=== PATIENT | female | born 1950 | race American Indian/Alaskan Native ===

== ENCOUNTER 2017-05-11 05:30 | Inpatient (IN) | payer MEDICARE ==
[2017-05-11 06:34] LABS: Basophils % (Auto) 0.6 % (0.0-1.8); Eosinophils % (Auto) 1.6 % (0.0-4.3); Hematocrit 31.5 % (30.3-42.9); Mean Corpuscular HGB Conc 32 % (30-34); Mean Corpuscular Hemoglobin 27 pg (28-32); Mean Corpuscular Volume 85 fl (79-97); Platelet Count 223 K/mm3 (140-440); Red Blood Count 3.72 M/mm3 (3.65-5.03)
--- NOTE | 2017-05-11 06:39 | Emergency Department Report ---
ED Shortness of Breath HPI - General Chief Complaint: Dyspnea/Respdistress Stated Complaint: KANIKA Time Seen by Provider: 05/11/17 05:58 Source: patient Mode of arrival: Stretcher Limitations: No Limitations - History of Present Illness Initial Comments: Patient is a 67-year-old female history of end-stage renal disease on dialysis Friday here with complaint of shortness of breath and chest tightness. Patient states that last night she began to feel worsening shortness of breath. She has been feeling fatigued all week. She had some tightness in the center of her chest that did not radiate. It was not worse with exertion. She had a cough and felt that she was coughing up some frothy sputum. She does not miss dialysis and had a normal session on Friday. She does not feel volume overloaded. MD Complaint: shortness of breath -: Gradual, week(s) (1) Improves With: oxygen Worsens With: exertion Known History Of: asthma Associated Symptoms: chest pain, cough, sputum production - Related Data Home Medications Medication Instructions Recorded Confirmed Last Taken Albuterol Sulfate [Albuterol 0.63% 0.63 mg IH TID PRN 11/23/14 12/12/15 3 Months Ago NEBS] NIFEdipine XL [Procardia Xl] 60 mg PO DAILY 04/05/15 12/12/15 12/12/15 06:00 Carvedilol [Coreg] 6.25 mg PO DAILY 04/29/15 12/12/15 12/12/15 06:00 Glimepiride [Amaryl] 2 mg PO BID 04/29/15 12/06/15 12/11/15 Warfarin [Coumadin] 2.5 mg PO QDAY 04/29/15 12/06/15 12/07/15 cloNIDine [Catapres] 2 mg PO TID 04/29/15 12/12/15 12/12/15 06:00 hydrALAZINE [Apresoline TAB] 100 mg PO DAILY 04/29/15 12/12/15 12/12/15 06:00 Ferric Citrate (Nf) [Auryxia (Nf)] 210 mg PO TID 12/06/15 12/06/15 12/11/15 Furosemide [Lasix TAB] 40 mg PO QDAY 12/06/15 12/06/15 12/11/15 Simvastatin [Zocor TAB] 10 mg PO QHS 12/06/15 12/06/15 12/11/15 Warfarin [Coumadin] 5 mg PO QDAY 12/06/15 12/06/15 12/07/15 Previous Rx's Medication Instructions Recorded Last Taken Type clonazePAM [KlonoPIN] 0.5 mg PO HS #30 tablet 04/26/15 12/11/15 Rx HYDROcodone/APAP 7.5-325 [Clune 1 each PO Q6HR PRN #60 tablet 12/12/15 Unknown Rx 7.5/325] Allergies Allergy/AdvReac Type Severity Reaction Status Date / Time morphine Allergy Intermediate Itching Verified 04/10/15 08:32 Penicillins AdvReac Intermediate Rash Verified 04/10/15 08:32 ED Review of Systems ROS: Stated complaint: KANIKA Other details as noted in HPI Comment: All other systems reviewed and negative Constitutional: denies: chills, fever Eyes: denies: eye pain, eye discharge, vision change ENT: denies: ear pain, throat pain Respiratory: cough, shortness of breath. denies: wheezing Cardiovascular: chest pain. denies: palpitations Endocrine: no symptoms reported Gastrointestinal: denies: abdominal pain, nausea, diarrhea Genitourinary: denies: urgency, dysuria, discharge Musculoskeletal: denies: back pain, joint swelling, arthralgia Skin: denies: rash, lesions Neurological: denies: headache, weakness, paresthesias Psychiatric: denies: anxiety, depression Hematological/Lymphatic: denies: easy bleeding, easy bruising ED Past Medical Hx - Past Medical History Hx Hypertension: Yes Hx Congestive Heart Failure: Yes Hx Diabetes: Yes (NIDDM 1993) Hx GERD: Yes Hx Renal Disease: Yes (CKD on Dialysis) Hx of Cancer: Yes (RENAL) Hx Sickle Cell Disease: No Hx Arthritis: Yes (KNEES) Hx Seizures: No Hx Asthma: Yes (SEASONAL IN [place] ONLY) Hx COPD: No Hx Tuberculosis: No Hx HIV: No Additional medical history: A fib - Surgical History Hx Pacemaker: No Additional Surgical History: Hysterectomy. Right Nephrectomy - Family History Family history: no significant - Social History Smoking Status: Never Smoker Substance Use Type: None - Medications Home Medications: Home Medications Medication Instructions Recorded Confirmed Last Taken Type Albuterol Sulfate [Albuterol 0.63% 0.63 mg IH TID PRN 11/23/14 12/12/15 3 Months Ago History NEBS] NIFEdipine XL [Procardia Xl] 60 mg PO DAILY 04/05/15 12/12/15 12/12/15 06:00 History clonazePAM [KlonoPIN] 0.5 mg PO HS #30 tablet 04/26/15 12/06/15 12/11/15 Rx Carvedilol [Coreg] 6.25 mg PO DAILY 04/29/15 12/12/15 12/12/15 06:00 History Glimepiride [Amaryl] 2 mg PO BID 04/29/15 12/06/15 12/11/15 History Warfarin [Coumadin] 2.5 mg PO QDAY 04/29/15 12/06/15 12/07/15 History cloNIDine [Catapres] 2 mg PO TID 04/29/15 12/12/15 12/12/15 06:00 History hydrALAZINE [Apresoline TAB] 100 mg PO DAILY 04/29/15 12/12/15 12/12/15 06:00 History Ferric Citrate (Nf) [Auryxia (Nf)] 210 mg PO TID 12/06/15 12/06/15 12/11/15 History Furosemide [Lasix TAB] 40 mg PO QDAY 12/06/15 12/06/15 12/11/15 History Simvastatin [Zocor TAB] 10 mg PO QHS 12/06/15 12/06/15 12/11/15 History Warfarin [Coumadin] 5 mg PO QDAY 12/06/15 12/06/15 12/07/15 History HYDROcodone/APAP 7.5-325 [Clune 1 each PO Q6HR PRN #60 tablet 12/12/15 Unknown Rx 7.5/325] ED Physical Exam - General Limitations: No Limitations General appearance: alert, in no apparent distress - Head Head exam: Present: atraumatic, normocephalic - Eye Eye exam: Present: normal appearance - ENT ENT exam: Present: mucous membranes moist - Neck Neck exam: Present: normal inspection - Respiratory Respiratory exam: Present: normal lung sounds bilaterally. Absent: respiratory distress - Cardiovascular Cardiovascular Exam: Present: regular rate, irregular rhythm. Absent: systolic murmur, diastolic murmur, rubs, gallop - GI/Abdominal GI/Abdominal exam: Present: soft, normal bowel sounds - Extremities Exam Extremities exam: Present: pedal edema. Absent: tenderness - Back Exam Back exam: Present: normal inspection. Absent: full ROM, tenderness - Neurological Exam Neurological exam: Present: alert, oriented X3 - Psychiatric Psychiatric exam: Present: normal affect, normal mood - Skin Skin exam: Present: warm, dry, intact, normal color. Absent: rash ED Course Vital Signs 05/11/17 05/11/17 05/11/17 05:45 06:25 06:39 Temperature 97.6 F Pulse Rate 98 H 90 Respiratory 20 18 18 Rate Blood Pressure 209/89 Blood Pressure 209/89 174/85 [Left] O2 Sat by Pulse 99 100 100 Oximetry ED Medical Decision Making - Lab Data Result diagrams: 05/11/17 06:05 05/11/17 06:05 - EKG Data -: EKG Interpreted by Me - EKG Data 05/11/17 06:38 A flutter rate and [address]-T wave changes - Medical Decision Making Patient is a 67-year-old female here with a history of end-stage renal disease complaints of chest pain and shortness of breath. No coronary artery disease history. No recent stress testing. She has been feeling fatigued and having worsening shortness of breath over the last week. EKG is unchanged from priors. Plan chest x-ray labs and reassessment. Heart score places her at moderate risk. 8:25 AM Discussed case with hospital medicine. Plan to admit to medicine service for dialysis. Will discuss case with paper sheeter. 8:36 AM discussed case with Dr. Dunbar of nephrology. Plan to arrange dialysis. Portions of this chart were dictated with dictation software. There may be dictation errors contained within this note. Critical care attestation.: If time is entered above; I have spent that time in minutes in the direct care of this critically ill patient, excluding procedure time. ED Disposition Clinical Impression: Elevated brain natriuretic peptide (BNP) level, SOB (shortness of breath), CHF (congestive heart failure) Disposition: OP ADMIT IP TO THIS HOSP Is pt being admited?: Yes Condition: Stable Referrals: PRIMARY CARE, [Primary Care Provider] - 3-5 Days
[2017-05-11 06:42] LABS: Red Cell Distribution Width 20.9 % (13.2-15.2)
[2017-05-11 06:50] LABS: BUN/Creatinine Ratio 6.45; Calcium 9.6 mg/dL (8.4-10.2); Chloride 98.6 mmol/L (98-107); Potassium 4.5 mmol/L (3.6-5.0)
[2017-05-11] MEDS ORDERED: NACL 0.9% 100 ML IV PRN (08:41)
[2017-05-11] MEDS ORDERED: NORMODYNE IV ONE (08:58)
[2017-05-11] MEDS ORDERED: APRESOLINE IV ONE (09:02)
[2017-05-11] MEDS ORDERED: APRESOLINE ONE (09:03)
--- NOTE | 2017-05-11 09:16 | XRay Report ---
Single view chest: Compared to . History: Shortness of breath. Findings: Cardiomegaly. Trachea is midline. Pulmonary venous congestion. No consolidation or pleural effusion. Impression: Probable CHF.
--- NOTE | 2017-05-11 09:20 | Consultation ---
History of Present Illness - Reason for Consult Consult date: 05/11/17 end stage renal disease, accelerated hypertension Requesting physician: ROBERT FERREIRA - History of Present Illness This is a 67yo AAF, well known to our group, with h/o hypertension, paroxysmal A -Fib, h/o renal cell CA s/p Rt nephrectomy, ESRD on HD on M/W/F schedule, who presents to [facility] ER on 05/11 with complaints of shortness of breath and chest tightness. Pt had her last routine HD on Fri, when she left close to her EDW, however her SBP was elevated around 190-200s. recently BP meds were adjusted by her [employer]er [employer], however pt admits that she missed several doses since she is in the process of moving. SOB started last night with SMITH, although she fell weak the whole last week. pt also reports chest tightness in the center of her chest that did not radiate, not worse with exertion. In ER patient was found to have accelerated hypertension with BP as high as 200/80s, treated with IV hydralazine/IV labetalol. CXR showed evidence of pulmonary edema and proBNP was elevated > 29422. Renal consult requested for management of ESRD/volume and BP control. Past History Past Medical History: atrial fib, anemia, hypertension, renal failure Past Surgical History: Other (h/o nephrectomy ) Social history: full code. denies: smoking, alcohol abuse, prescription drug abuse, IV drug use Family history: hypertension Medications and Allergies Allergies Allergy/AdvReac Type Severity Reaction Status Date / Time morphine Allergy Intermediate Itching Verified 04/10/15 08:32 Penicillins AdvReac Intermediate Rash Verified 04/10/15 08:32 Home Medications Medication Instructions Recorded Confirmed Last Taken Type Albuterol Sulfate [Albuterol 0.63% 0.63 mg IH TID PRN 11/23/14 05/11/17 3 Months Ago History NEBS] NIFEdipine XL [Procardia Xl] 60 mg PO BID 04/05/15 05/11/17 12/12/15 06:00 History clonazePAM [KlonoPIN] 0.5 mg PO HS #30 tablet 04/26/15 05/11/17 12/11/15 Rx Carvedilol [Coreg] 3.125 mg PO BID 04/29/15 05/11/17 12/12/15 06:00 History Glimepiride [Amaryl] 2 mg PO BID 04/29/15 05/11/17 12/11/15 History Warfarin [Coumadin] 2.5 mg PO QDAY 04/29/15 05/11/17 12/07/15 History cloNIDine [Catapres] 0.2 mg PO TID 04/29/15 05/11/17 12/12/15 06:00 History Ferric Citrate (Nf) [Auryxia (Nf)] 210 mg PO TID 12/06/15 05/11/17 12/11/15 History Furosemide [Lasix TAB] 40 mg PO QDAY 12/06/15 05/11/17 12/11/15 History Simvastatin [Zocor TAB] 10 mg PO QHS 12/06/15 05/11/17 12/11/15 History Warfarin [Coumadin] 5 mg PO QDAY 12/06/15 05/11/17 12/07/15 History Gabapentin [Neurontin] 100 mg PO Q8HR PRN 05/11/17 05/11/17 Unknown History Valsartan/Hydrochlorothiazide 1 each PO BID 05/11/17 05/11/17 Unknown History [Valsartan-Hctz 160-12.5 mg Tab] Active Meds: Active Medications Sodium Chloride (Nacl 0.9%) 100 mls @ 999 mls/hr IV CLEOPATRA PRN PRN Reason: Hypotension Review of Systems All systems: negative Constitutional: weakness Cardiovascular: chest pain, shortness of breath, dyspnea on exertion Respiratory: cough with sputum, shortness of breath, dyspnea on exertion, congestion Exam - Vital Signs Vital signs: Vital Signs Temp Pulse Resp BP Pulse Ox 97.6 F 98 H 20 209/89 99 05/11/17 05:45 05/11/17 05:45 05/11/17 05:45 05/11/17 05:45 05/11/17 05:45 - General Appearance General appearance: well-developed, well-nourished, appears stated age EENT: ATNC, PERRL, mucous membranes moist Neck: Present: neck supple Respiratory: Rales Heart: regular, S1S2 Gastrointestinal: Present: normoactive bowel sounds Integumentary: no rash, other (no edema ) Neurologic: no focal deficit, alert and oriented x3, strength 5/5, CN 3-12 intact Psychiatric: mood/affect appropriate, cooperative Results - Lab Results 05/11/17 06:05 05/11/17 06:05 Most recent lab results Calcium 9.6 mg/dL (8.4-10.2) 05/11/17 06:05 Laboratory Tests 05/11/17 05/11/17 06:05 06:05 Calcium 9.6 Troponin T 0.023 NT-Pro-B Natriuret Pep 99347 H Assessment and Plan - Patient Problems (1) Hypertensive emergency Current Visit: Yes Status: Acute Plan to address problem: Will arrange HD today with target UF of 3 kg as tolerated. cont IV hydralazine/ IV labetalol to target SBP 160mmHg. Resume home BP meds, will adjust meds if BP does not improve with HD/UF today (2) Pulmonary edema Current Visit: Yes Status: Acute Qualifiers: Chronicity: C Plan to address problem: HD today with target UF of 3kg (3) Anemia in chronic illness Current Visit: Yes Status: Acute Plan to address problem: Hb at target, will start EPO if hb < 10 (4) Atrial fibrillation Current Visit: No Status: Chronic Qualifiers: Atrial fibrillation type: unspecified Qualified Code(s): I48.91 - Unspecified atrial fibrillation Plan to address problem: currently well rate controlled. cont A/C with warfarin (5) End stage renal disease on dialysis Current Visit: No Status: Chronic Plan to address problem: HD today, then resume HD on MWF schedule
[2017-05-11] MEDS ORDERED: NACL 0.9 (PRIMING MACHINE ONLY DIALYSIS) MC ONE (10:55)
[2017-05-11] MEDS ORDERED: NEURONTIN PO PRN (11:34)
[2017-05-11] MEDS: PROVENTIL IH SCH ×3 (12:12→20:39)
[2017-05-11] MEDS: CATAPRES PO SCH ×2 (13:43→19:55)
[2017-05-11] MEDS: COREG PO SCH ×2 (13:46→22:07)
[2017-05-11] MEDS ORDERED: NON-FORMULARY (Ferric Citrate 210 MG) PO SCH (14:00)
[2017-05-11 14:40] LABS: INR 2.84 (0.87-1.13)
--- NOTE | 2017-05-11 15:16 | History and Physical Report ---
History of Present Illness Date of admission: 05/11/17 08:26 Chief complaint: Shortness of breath and lower extremity swelling History of present illness: Kristin is a 67-year-old woman with a past medical history of end-stage renal disease, atrial fibrillation, diabetes, uncontrolled hypertension, asthma. She states that she is in the process of moving to [facility], she has been very busy, she could not find her medications because she doesn't know where they fell when she was packing. Therefore she has not been taking any of her medications for blood pressure or her diuretics. She states that she never missed any episodes of hemodialysis. She had a yard sale and she was outside for many hours in the hot sun, she checked her glucose as she was hypoglycemic to 48. After which she chose to go and eat, however she admits that she was not adherent to her low sodium diet, she went out and ate very salty [place] food. Shortly after vascular getting very short of breath, complaining of SMITH, orthopnea, pedal edema. And chest tightness. She states that she had some wheezing in the ER, but wheezing has now resolved. Since getting dialysis she feels much better. Past History Past Medical History: atrial fib, anemia, diabetes (diet and lifestyle controlled), hypertension, renal failure, other (hx or RCC, sp nephrectomy, asthma) Past Surgical History: Other (h/o nephrectomy ) Social history: full code. denies: smoking, alcohol abuse, prescription drug abuse, IV drug use Family history: hypertension Medications and Allergies Allergies Allergy/AdvReac Type Severity Reaction Status Date / Time morphine Allergy Intermediate Itching Verified 04/10/15 08:32 Penicillins AdvReac Intermediate Rash Verified 04/10/15 08:32 Home Medications Medication Instructions Recorded Confirmed Last Taken Type Albuterol Sulfate [Albuterol 0.63% 0.63 mg IH TID PRN 11/23/14 05/11/17 3 Months Ago History NEBS] NIFEdipine XL [Procardia Xl] 60 mg PO BID 04/05/15 05/11/17 12/12/15 06:00 History clonazePAM [KlonoPIN] 0.5 mg PO HS #30 tablet 04/26/15 05/11/17 12/11/15 Rx Carvedilol [Coreg] 3.125 mg PO BID 04/29/15 05/11/17 12/12/15 06:00 History Glimepiride [Amaryl] 2 mg PO BID 04/29/15 05/11/17 12/11/15 History Warfarin [Coumadin] 2.5 mg PO QDAY 04/29/15 05/11/17 12/07/15 History cloNIDine [Catapres] 0.2 mg PO TID 04/29/15 05/11/17 12/12/15 06:00 History Ferric Citrate (Nf) [Auryxia (Nf)] 210 mg PO TID 12/06/15 05/11/17 12/11/15 History Furosemide [Lasix TAB] 40 mg PO QDAY 12/06/15 05/11/17 12/11/15 History Simvastatin [Zocor TAB] 10 mg PO QHS 12/06/15 05/11/17 12/11/15 History Warfarin [Coumadin] 5 mg PO QDAY 12/06/15 05/11/17 12/07/15 History Gabapentin [Neurontin] 100 mg PO Q8HR PRN 05/11/17 05/11/17 Unknown History Valsartan/Hydrochlorothiazide 1 each PO BID 05/11/17 05/11/17 Unknown History [Valsartan-Hctz 160-12.5 mg Tab] Active Meds: Active Medications Albuterol (Proventil) 2.5 mg IH QIDRT [facility] Last Admin: 05/11/17 12:12 Dose: Not Given Carvedilol (Coreg) 3.125 mg PO BID [facility] Last Admin: 05/11/17 13:46 Dose: 3.125 mg Clonazepam (Klonopin) 0.5 mg PO HS [facility] Clonidine HCl (Catapres) 0.2 mg PO TID [facility] Last Admin: 05/11/17 13:43 Dose: 0.2 mg Furosemide (Lasix) 40 mg PO QDAY [facility] Gabapentin (Neurontin) 100 mg PO Q8H PRN PRN Reason: Pain Hydralazine HCl (Apresoline) 10 mg IV Q4H PRN PRN Reason: BP >160/100 Sodium Chloride (Nacl 0.9%) 100 mls @ 999 mls/hr IV CLEOPATRA PRN PRN Reason: Hypotension Miscellaneous Medication (Ferric Citrate) 210 mg PO TID [facility] Nifedipine (Procardia Xl) 60 mg PO BID [facility] Simvastatin (Zocor) 10 mg PO QHS S[facility] Warfarin Sodium (Coumadin) 5 mg PO QDAY SUSY PRN Reason: Protocol Warfarin Sodium (Coumadin Pharmacy To Dose) 1 each PO PKCONSULT SUSY PRN Reason: Protocol Review of Systems All systems: negative (14 point review of systems is otherwise negative except as stated in HPI) Constitutional: fatigue, weakness Cardiovascular: chest pain, orthopnea, edema, shortness of breath, dyspnea on exertion, paroxysmal nocturnal dyspnea Respiratory: wheezing Exam - Constitutional Vitals: Temp Pulse Resp BP Pulse Ox 97.9 F 78 20 201/93 98 05/11/17 12:00 05/11/17 14:45 05/11/17 12:00 05/11/17 14:45 05/11/17 10:03 General appearance: Present: no acute distress, well-nourished - EENT Eyes: Present: PERRL ENT: hearing intact, clear oral mucosa - Neck Neck: Present: supple, normal ROM - Respiratory Respiratory effort: normal Respiratory: bilateral: rales (bases) - Cardiovascular Heart Sounds: Present: S1 & S2. Absent: rub, click - Extremities Extremities: pulses symmetrical, No edema Peripheral Pulses: within normal limits - Abdominal General gastrointestinal: Present: soft, non-tender, non-distended, normal bowel sounds Female genitourinary: Present: normal - Integumentary Integumentary: Present: clear, warm, dry - Musculoskeletal Musculoskeletal: gait normal, strength equal bilaterally - Psychiatric Psychiatric: appropriate mood/affect, intact judgment & insight - Neurologic Neurologic: CNII-XII intact, moves all extremities Results - Labs CBC & Chem 7: 05/11/17 06:05 05/11/17 06:05 Labs: Laboratory Last Values WBC 12.0 K/mm3 (4.5-11.0) H 05/11/17 06:05 RBC 3.72 M/mm3 (3.65-5.03) 05/11/17 06:05 Hgb 10.0 gm/dl (10.1-14.3) L 05/11/17 06:05 Hct 31.5 % (30.3-42.9) 05/11/17 06:05 MCV 85 fl (79-97) 05/11/17 06:05 MCH 27 pg (28-32) L 05/11/17 06:05 MCHC 32 % (30-34) 05/11/17 06:05 RDW 20.9 % (13.2-15.2) H 05/11/17 06:05 Plt Count 223 K/mm3 (140-440) 05/11/17 06:05 Lymph % (Auto) 8.3 % (13.4-35.0) L 05/11/17 06:05 [place] % (Auto) 6.2 % (0.0-7.3) 05/11/17 06:05 Eos % (Auto) 1.6 % (0.0-4.3) 05/11/17 06:05 Baso % (Auto) 0.6 % (0.0-1.8) 05/11/17 06:05 Lymph # 1.0 K/mm3 (1.2-5.4) L 05/11/17 06:05 [place] # 0.7 K/mm3 (0.0-0.8) 05/11/17 06:05 Eos # 0.2 K/mm3 (0.0-0.4) 05/11/17 06:05 Baso # 0.1 K/mm3 (0.0-0.1) 05/11/17 06:05 Seg Neutrophils % 83.3 % (40.0-70.0) H 05/11/17 06:05 Seg Neutrophils # 10.0 K/mm3 (1.8-7.7) H 05/11/17 06:05 PT 31.4 Sec. (12.2-14.9) H 05/11/17 12:42 INR 2.84 (0.87-1.13) H 05/11/17 12:42 Sodium 143 mmol/L (137-145) 05/11/17 06:05 Potassium 4.5 mmol/L (3.6-5.0) 05/11/17 06:05 Chloride 98.6 mmol/L (98-107) 05/11/17 06:05 Carbon Dioxide 25 mmol/L (22-30) 05/11/17 06:05 Anion Gap 24 mmol/L 05/11/17 06:05 BUN 51 mg/dL (7-17) H 05/11/17 06:05 Creatinine 7.9 mg/dL (0.7-1.2) H 05/11/17 06:05 Estimated GFR 6 ml/min 05/11/17 06:05 BUN/Creatinine Ratio 6.45 % 05/11/17 06:05 Glucose 131 mg/dL (65-100) H 05/11/17 06:05 POC Glucose 158 (70-105) H 05/11/17 11:59 Calcium 9.6 mg/dL (8.4-10.2) 05/11/17 06:05 Troponin T 0.023 ng/mL (0.00-0.029) 05/11/17 06:05 NT-Pro-B Natriuret Pep 80617 pg/mL (0-900) H 05/11/17 06:05 - Imaging and Cardiology Chest x-ray: image reviewed (pulmonary vascular congestion) Assessment and Plan Assessment and plan: Kristin is a 67-year-old woman with a past medical history of end-stage renal disease, atrial fibrillation, diabetes, uncontrolled hypertension, asthma, she presented with noncompliance with low sodium diet, and having lost her medications and not taking any of her blood pressure medications and diuretics for a few days. She presented with fluid overload and was admitted to have urgent dialysis. Chest pain Also likely due to CHF exacerbation and hypertensive urgency Serial troponins are negative, will obtain cardiology consult as this is likely that she has had cardiac risk stratification by them now patient already therefore will not order it. Acute exacerbation of CHF Cardiology consult said, fluid to be removed by hemodialysis Optimize cardiac medications, obtain echocardiogram Atrial fibrillation/chronic Continue heart rate control medications, continue warfarin, pharmacy to dose Hypertensive urgency She received IV hydralazine in the ER, blood pressures are improved, we'll restart her home medications Diabetes type 2, not insulin-dependent With antihyperglycemic prior to arrival, Lifestyle controlled We'll put on sliding scale insulin Asthma Does not appear to be an exacerbation Wheezing that was heard in the ER was most likely due to pulmonary vascular congestion, have now resolved DVT prophylaxis Fully anticoagulated VTE prophylaxis?: Chemical Plan of care discussed with patient/family: Yes
[2017-05-11] MEDS ORDERED: D50W (25GM) IV PRN (15:23)
[2017-05-11] MEDS: COUMADIN PO SCH (17:12)
[2017-05-11] MEDS: NOVOLOG SUB-Q SCH ×2 (17:15→21:57)
[2017-05-11] MEDS ORDERED: PROVENTIL IH PRN (17:24)
[2017-05-11] MEDS: APRESOLINE IV PRN (19:55)
[2017-05-11] MEDS: PROCARDIA XL PO SCH (22:08)
[2017-05-11] MEDS: ZOCOR PO SCH (22:08)
[2017-05-12] MEDS: APRESOLINE IV PRN ×3 (00:16→18:42)
[2017-05-12 05:08] LABS: INR 2.9 (0.87-1.13)
[2017-05-12] MEDS: TYLENOL PO PRN ×2 (05:55→20:08)
--- NOTE | 2017-05-12 07:50 | Admit Criteria Form ---
Admission Criteria Documentation: HEART FAILURE: COMMON COMPLICATIONS Clinical Indications for Inpatient Care (lovelock/check or initial the applicable condition/criteria): Ongoing inpatient care may be indicated for heart failure with 1 or more of the following (1)(2)(3)(4)(5)(6)(7)(8): [ ]I. New-onset heart failure [ ]II. Acute cardiac ischemia causing or associated with failure [ ]III. Ongoing need for care for primary condition requiring frequent therapy adjustments because of changes in cardiac function (eg, drug dosage changes for drugs that are renally metabolized) [X]IV. Complications of heart failure, including 1 or more of the following: [ ]a) Hemodynamic instability [ ]b) Pericardial effusion [ ]c) Symptomatic pleural effusion(16) [ ]d) Hypoxemia [ ]e) Tachypnea [X]f) Dyspnea [ ]g) Syncope [ ]h) Altered mental status [ ]i) Acute renal insufficiency that is severe (reduction of more than 50% in estimated glomerular filtration rate from baseline) or progressive (reduction of more than 25% in estimated glomerular filtration rate from baseline, with creatinine continuing to rise) [ ]j) Debilitating anasarca (eg tissue breakdown with infection, inability to void due to edema)(E) (17) [ ]k) Clinically significant metabolic abnormalities due to heart failure (e.g., new-onset metabolic acidosis) Extended stay may be needed until ALL of the following are present(1)(3)(18)(41) (55): [ ]a) Hemodynamic stability [ ]b) Stable and effective diuretic regimen established (or patient on stable dialysis regimen if in chronic renal failure) [ ]c) Volume status acceptable on oral medication [ ]d) Breathing comfortably at rest [ ]e) Saturation of arterial oxygen greater than 90% or at acceptable baseline [ ]f) Pulmonary edema absent or improved [ ]g) Peripheral or sacral edema absent or improved [ ]h) Renal function stable and manageable at a lower level of care [ ]i) Complications (e.g., pleural effusion) resolved or manageable at a lower level of care [ ]j) Patient or caregiver has received written discharge instructions or educational material addressing activity level, diet, discharge medications, follow-up appointment, weight monitoring, and what to do if symptoms worsen. (56)(57)(58) The original [facility] [employer] content created by Kris Helm has been revised. The portions of the content which have been revised are identified through the use of italic text or in bold, and Kris Helm has neither reviewed nor approved the modified material.All other unmodified content is copyright [employer]. Please see references footnoted in the original [employer] [facility] edition 2017 Admission Criteria Met: Yes
[2017-05-12] MEDS: NOVOLOG SUB-Q SCH ×4 (08:14→22:54)
[2017-05-12] MEDS: PROVENTIL IH SCH ×3 (08:38→19:45)
[2017-05-12] MEDS: CATAPRES PO SCH ×3 (08:43→21:19)
[2017-05-12] MEDS ORDERED: DIOVAN PO ONE (09:00)
--- NOTE | 2017-05-12 09:26 | Progress Note ---
Assessment and Plan (1) Hypertensive emergency Current Visit: Yes Status: Acute Plan to address problem: Remains poorly controlled. HD again today. Will challenge for 2-3 L UF as tolerated. Added Diovan for better BP control. (2) Pulmonary edema Current Visit: Yes Status: Acute Qualifiers: Chronicity: C Plan to address problem: HD again today with target UF of 2-3kg (3) Anemia in chronic illness Current Visit: Yes Status: Acute Plan to address problem: Hb at target, will start EPO if hb < 10 (4) Atrial fibrillation Current Visit: No Status: Chronic Qualifiers: Atrial fibrillation type: unspecified Qualified Code(s): I48.91 - Unspecified atrial fibrillation Plan to address problem: currently well rate controlled. cont A/C with warfarin (5) End stage renal disease on dialysis Current Visit: No Status: Chronic Plan to address problem: HD today, then resume HD on MWF schedule Subjective Date of service: 05/12/17 Interval history: SOB improved. S/p emergency HD on Friday Objective - Exam Narrative Exam: General appearance: well-developed, well-nourished, appears stated age EENT: ATNC, PERRL, mucous membranes moist Neck: Present: neck supple, No JVD, trachea midline, no lmphadenopathy Respiratory: Rales b/L, no wheezing Heart: irregular irregular, No m/r/g Gastrointestinal: Present: normoactive bowel sounds, Non tender Integumentary: no rash, other (no edema ), Neurologic: no focal deficit, alert and oriented x3, strength 5/5, CN 3-12 intact Psychiatric: mood/affect appropriate, cooperative - Vital Signs Vital signs: Vital Signs - 12hr 05/11/17 05/11/17 05/12/17 22:00 22:07 00:16 Pulse Rate 60 100 H 61 Pulse Rate [ Posterior Bases ] Respiratory Rate [Posterior Bases] Blood Pressure 185/96 194/73 O2 Sat by Pulse Oximetry 05/12/17 05/12/17 05/12/17 05:08 08:38 08:43 Pulse Rate 66 66 Pulse Rate [ 87 Posterior Bases ] Respiratory 16 Rate [Posterior Bases] Blood Pressure 183/68 190/123 O2 Sat by Pulse 98 Oximetry 05/12/17 05/12/17 08:44 08:49 Pulse Rate 66 Pulse Rate [ 92 H Posterior Bases ] Respiratory 16 Rate [Posterior Bases] Blood Pressure 190/123 O2 Sat by Pulse Oximetry - Lab 05/11/17 06:05 05/11/17 06:05 Most recent lab results Calcium 9.6 mg/dL (8.4-10.2) 05/11/17 06:05
[2017-05-12] MEDS: COREG PO SCH (09:59)
[2017-05-12] MEDS: LASIX PO SCH (09:59)
[2017-05-12] MEDS: PROCARDIA XL PO SCH ×2 (10:00→21:19)
[2017-05-12] MEDS ORDERED: COUMADIN PO SCH (10:00)
--- NOTE | 2017-05-12 11:16 | Progress Note ---
Assessment and Plan Assessment and plan: Kristin is a 67-year-old woman with a past medical history of end-stage renal disease, atrial fibrillation, diabetes, uncontrolled hypertension, asthma, she presented with noncompliance with low sodium diet, and having lost her medications and not taking any of her blood pressure medications and diuretics for a few days. She presented with fluid overload and was admitted to have urgent dialysis. Chest pain likely costochondritis Also likely due to CHF exacerbation and hypertensive urgency Serial troponins are negative, cardiology consult pending Acute exacerbation of CHF likely diastolic due to uncontrolled hypertension Cardiology consult said, fluid to be removed by hemodialysis Optimize cardiac medications, obtain echocardiogram Per Cardiology patient has had optimize the workup that was negative including cardiac catheterization about 2 years ago. Atrial fibrillation/chronic Continue heart rate control medications, continue warfarin, pharmacy to dose Coagulopathy Secondary to warfarin. Pharmacy managing. Hypertensive urgency Still uncontrolled. She received IV hydralazine in the ER, blood pressures are improved, Diovan added, will increase coreg to 6.25 BID Diabetes type 2, not insulin-dependent With antihyperglycemic prior to arrival, Lifestyle controlled We'll put on sliding scale insulin Asthma Does not appear to be an exacerbation PRN nebs DVT prophylaxis Fully anticoagulated History Interval history: Patient seen and examined in no acute distress sitting up at the edge of the bed Hospitalist Physical - Physical exam Narrative exam: VITAL SIGNS: Reviewed. GENERAL: The patient appeared well nourished and normally developed. Vital signs as documented. HEAD: No signs of head trauma. EYES: Pupils are equal. Extraocular motions intact. EARS: Hearing grossly intact. MOUTH: Oropharynx is normal. NECK: No adenopathy, no JVD. CHEST: Chest with clear breath sounds bilaterally. No wheezes, rales, or rhonchi. CARDIAC: Irregularly irregular rate and rhythm. S1 and S2, without murmurs, gallops, or rubs. VASCULAR: No Edema. Peripheral pulses normal and equal in all extremities. ABDOMEN: Soft, without detectable tenderness. No sign of distention. No rebound or guarding, and no masses palpated. Bowel Sounds normal. MUSCULOSKELETAL: Good range of motion of all major joints. Extremities without clubbing, cyanosis or edema. NEUROLOGIC EXAM: Alert and oriented x 3. No focal sensory or strength deficits. Speech normal. Follows commands. PSYCHIATRIC: Mood normal. SKIN: No rash or lesions. - Constitutional Vitals: Temp Pulse Resp BP Pulse Ox 98.6 F 72 18 188/66 100 05/12/17 10:00 05/12/17 10:00 05/12/17 10:00 05/12/17 10:00 05/12/17 09:10 General appearance: Present: no acute distress, well-nourished Results - Labs CBC & Chem 7: 05/11/17 06:05 05/11/17 06:05 Labs: Laboratory Last Values WBC 12.0 K/mm3 (4.5-11.0) H 05/11/17 06:05 RBC 3.72 M/mm3 (3.65-5.03) 05/11/17 06:05 Hgb 10.0 gm/dl (10.1-14.3) L 05/11/17 06:05 Hct 31.5 % (30.3-42.9) 05/11/17 06:05 MCV 85 fl (79-97) 05/11/17 06:05 MCH 27 pg (28-32) L 05/11/17 06:05 MCHC 32 % (30-34) 05/11/17 06:05 RDW 20.9 % (13.2-15.2) H 05/11/17 06:05 Plt Count 223 K/mm3 (140-440) 05/11/17 06:05 Lymph % (Auto) 8.3 % (13.4-35.0) L 05/11/17 06:05 [place] % (Auto) 6.2 % (0.0-7.3) 05/11/17 06:05 Eos % (Auto) 1.6 % (0.0-4.3) 05/11/17 06:05 Baso % (Auto) 0.6 % (0.0-1.8) 05/11/17 06:05 Lymph # 1.0 K/mm3 (1.2-5.4) L 05/11/17 06:05 [place] # 0.7 K/mm3 (0.0-0.8) 05/11/17 06:05 Eos # 0.2 K/mm3 (0.0-0.4) 05/11/17 06:05 Baso # 0.1 K/mm3 (0.0-0.1) 05/11/17 06:05 Seg Neutrophils % 83.3 % (40.0-70.0) H 05/11/17 06:05 Seg Neutrophils # 10.0 K/mm3 (1.8-7.7) H 05/11/17 06:05 PT 31.9 Sec. (12.2-14.9) H 05/12/17 04:28 INR 2.90 (0.87-1.13) H 05/12/17 04:28 Sodium 143 mmol/L (137-145) 05/11/17 06:05 Potassium 4.5 mmol/L (3.6-5.0) 05/11/17 06:05 Chloride 98.6 mmol/L (98-107) 05/11/17 06:05 Carbon Dioxide 25 mmol/L (22-30) 05/11/17 06:05 Anion Gap 24 mmol/L 05/11/17 06:05 BUN 51 mg/dL (7-17) H 05/11/17 06:05 Creatinine 7.9 mg/dL (0.7-1.2) H 05/11/17 06:05 Estimated GFR 6 ml/min 05/11/17 06:05 BUN/Creatinine Ratio 6.45 % 05/11/17 06:05 Glucose 131 mg/dL (65-100) H 05/11/17 06:05 POC Glucose 136 (70-105) H 05/12/17 07:25 Calcium 9.6 mg/dL (8.4-10.2) 05/11/17 06:05 Troponin T 0.023 ng/mL (0.00-0.029) 05/11/17 06:05 NT-Pro-B Natriuret Pep 93791 pg/mL (0-900) H 05/11/17 06:05
[2017-05-12] MEDS ORDERED: NACL 0.9% 100 ML IV PRN (13:00)
--- NOTE | 2017-05-12 13:34 | Consultation ---
History of Present Illness Consult date: 05/12/17 Consult reason: atrial fibrillation, chest pain History of present illness: This is a 67yr old woman with end stage renal disease and is on dialysis. She has Hypertension and chronic atrial fibrillation and is on warfarin for anticoagulation. 2 years ago she had a cardiac cath that demonstrates no significant coronary disease. At that time, an echocardiogram showed a normal systolic function, EF 60%. Patient was brought to this hospital with shortness of breath admitted with hypertensive urgency and acute hypoxic respiratory failure. Her initial BP was 209/89 on presentation. She denies chest pain. Her ECG shows atrial fibrillation with a well controlled ventricular rate. Laboratory studies shows a therapuetic INR of 2.8 on presentation. Past History Past Medical History: atrial fib, anemia, diabetes (diet and lifestyle controlled), hypertension, renal failure, other (hx or RCC, sp nephrectomy, asthma) Past Surgical History: Other (h/o nephrectomy ) Social history: full code. denies: smoking, alcohol abuse, prescription drug abuse, IV drug use Family history: hypertension Medications and Allergies Allergies Allergy/AdvReac Type Severity Reaction Status Date / Time morphine Allergy Intermediate Itching Verified 04/10/15 08:32 Penicillins AdvReac Intermediate Rash Verified 04/10/15 08:32 Home Medications Medication Instructions Recorded Confirmed Last Taken Type Albuterol Sulfate [Albuterol 0.63% 0.63 mg IH TID PRN 11/23/14 05/11/17 3 Months Ago History NEBS] NIFEdipine XL [Procardia Xl] 60 mg PO BID 04/05/15 05/11/17 12/12/15 06:00 History clonazePAM [KlonoPIN] 0.5 mg PO HS #30 tablet 04/26/15 05/11/17 12/11/15 Rx Carvedilol [Coreg] 3.125 mg PO BID 04/29/15 05/11/17 12/12/15 06:00 History Glimepiride [Amaryl] 2 mg PO BID 04/29/15 05/11/17 12/11/15 History Warfarin [Coumadin] 2.5 mg PO QDAY 04/29/15 05/11/17 12/07/15 History cloNIDine [Catapres] 0.2 mg PO TID 04/29/15 05/11/17 12/12/15 06:00 History Ferric Citrate (Nf) [Auryxia (Nf)] 210 mg PO TID 12/06/15 05/11/17 12/11/15 History Furosemide [Lasix TAB] 40 mg PO QDAY 12/06/15 05/11/17 12/11/15 History Simvastatin [Zocor TAB] 10 mg PO QHS 12/06/15 05/11/17 12/11/15 History Warfarin [Coumadin] 5 mg PO QDAY 12/06/15 05/11/17 12/07/15 History Gabapentin [Neurontin] 100 mg PO Q8HR PRN 05/11/17 05/11/17 Unknown History Valsartan/Hydrochlorothiazide 1 each PO BID 05/11/17 05/11/17 Unknown History [Valsartan-Hctz 160-12.5 mg Tab] Active Meds: Active Medications Acetaminophen (Tylenol) 650 mg PO Q6H PRN PRN Reason: Pain, Mild (1-3) Last Admin: 05/12/17 05:55 Dose: 650 mg Albuterol (Proventil) 2.5 mg IH Q4HRT PRN PRN Reason: Shortness Of Breath Albuterol (Proventil) 2.5 mg IH TIDRT [facility] Last Admin: 05/12/17 08:38 Dose: 2.5 mg Carvedilol (Coreg) 6.25 mg PO BID [facility] Clonazepam (Klonopin) 0.5 mg PO HS [facility] Last Admin: 05/11/17 22:07 Dose: 0.5 mg Clonidine HCl (Catapres) 0.2 mg PO TID [facility] Last Admin: 05/12/17 08:43 Dose: 0.2 mg Dextrose (D50w (25gm)) 50 ml IV PRN PRN PRN Reason: Hypoglycemia Furosemide (Lasix) 40 mg PO QDAY [facility] Last Admin: 05/12/17 09:59 Dose: 40 mg Gabapentin (Neurontin) 100 mg PO Q8H PRN PRN Reason: Pain Hydralazine HCl (Apresoline) 10 mg IV Q4H PRN PRN Reason: BP >160/100 Last Admin: 05/12/17 05:08 Dose: 10 mg Sodium Chloride (Nacl 0.9%) 100 mls @ 999 mls/hr IV CLEOPATRA PRN PRN Reason: Hypotension Sodium Chloride (Nacl 0.9%) 100 mls @ 999 mls/hr IV CLEOPATRA PRN PRN Reason: Hypotension Insulin Aspart (Novolog) 0 units SUB-Q ACHS [facility] PRN Reason: Protocol Last Admin: 05/12/17 08:14 Dose: Not Given Miscellaneous Medication (Ferric Citrate) 210 mg PO TID [facility] Nifedipine (Procardia Xl) 60 mg PO BID [facility] Last Admin: 05/12/17 10:00 Dose: 60 mg Simvastatin (Zocor) 10 mg PO QHS [facility] Last Admin: 05/11/17 22:08 Dose: 10 mg Warfarin Sodium (Coumadin Pharmacy To Dose) 1 each PO PKCONSULT [facility] PRN Reason: Protocol Warfarin Sodium (Coumadin) 2.5 mg PO DAILY@1700 [facility] Last Admin: 05/11/17 17:12 Dose: 2.5 mg Physical Examination Vital Signs Temp Pulse Resp BP Pulse Ox 97.6 F 98 H 20 209/89 99 05/11/17 05:45 05/11/17 05:45 05/11/17 05:45 05/11/17 05:45 05/11/17 05:45 General appearance: no acute distress HEENT: Positive: PERRL Neck: Positive: trachea midline Cardiac: Positive: irregularly irregular Neuro: Positive: Grossly Intact Results 05/11/17 06:05 05/11/17 06:05 Coagulation 05/11/17 05/12/17 Range/Units 12:42 04:28 PT 31.4 H 31.9 H (12.2-14.9) Sec. INR 2.84 H 2.90 H (0.87-1.13) Assessment and Plan Acute hypoxic respiratory failure Hypertensive urgency ESRD on HD Atrial fibrillation, chronic rate controlled on warfarin as an outpatient. INR 2.8 on presentation Diabetes mellitus
[2017-05-12] MEDS: COUMADIN PO SCH (18:41)
[2017-05-12] MEDS: ZOCOR PO SCH (21:19)
[2017-05-12] MEDS ORDERED: COREG PO SCH (22:00)
[2017-05-13] MEDS: APRESOLINE IV PRN (03:37)
[2017-05-13 04:30] LABS: INR 2.58 (0.87-1.13)
[2017-05-13] MEDS: NOVOLOG SUB-Q SCH ×2 (08:00→12:00)
[2017-05-13] MEDS: CATAPRES PO SCH ×2 (08:11→13:39)
[2017-05-13] MEDS: PROVENTIL IH SCH ×2 (08:31→13:12)
[2017-05-13] MEDS ORDERED: COREG PO SCH (08:56)
--- NOTE | 2017-05-13 09:10 | Progress Note ---
Assessment and Plan Volume overload Hypertensive urgency ESRD on HD Atrial fibrillation, chronic rate controlled on warfarin as an outpatient. INR 2.8 on presentation Diabetes mellitus Subjective Date of service: 05/13/17 Interval history: Patient has no complaints. Wants to go home. BP still not optimal. Objective Vital Signs Temp Pulse Pulse Pulse Resp Resp BP 05/13/17 08:41 73 16 05/13/17 08:31 76 16 05/13/17 08:30 05/13/17 08:11 73 182/64 05/13/17 03:37 65 181/73 05/12/17 22:00 99.1 F 112 H 76 18 05/12/17 21:19 112 H 193/90 05/12/17 21:18 112 H 193/90 05/12/17 20:14 05/12/17 19:57 99 H 16 05/12/17 19:45 94 H 16 05/12/17 18:42 76 188/68 05/12/17 18:05 98.7 F 90 18 160/90 05/12/17 17:45 94 H 182/95 05/12/17 17:30 96 H 167/134 05/12/17 17:15 89 178/101 05/12/17 17:00 108 H 195/90 05/12/17 16:45 98 H 178/96 05/12/17 16:30 99 H 178/95 05/12/17 16:15 97 H 186/84 05/12/17 16:00 99 H 197/86 BP Pulse Ox 05/13/17 08:41 05/13/17 08:31 05/13/17 08:30 97 05/13/17 08:11 05/13/17 03:37 05/12/17 22:00 188/68 99 05/12/17 21:19 05/12/17 21:18 05/12/17 20:14 100 05/12/17 19:57 05/12/17 19:45 05/12/17 18:42 05/12/17 18:05 05/12/17 17:45 05/12/17 17:30 05/12/17 17:15 05/12/17 17:00 05/12/17 16:45 05/12/17 16:30 05/12/17 16:15 05/12/17 16:00 - Physical Examination General: No Apparent Distress HEENT: Positive: PERRL Neck: Positive: trachea midline Cardiac: Positive: Reg Rate and Rhythm Lungs: Positive: Decreased Breath Sounds Neuro: Positive: Grossly Intact - Labs and Meds Coagulation 05/13/17 Range/Units 03:12 PT 29.1 H (12.2-14.9) Sec. INR 2.58 H (0.87-1.13)
[2017-05-13] MEDS: PROCARDIA XL PO SCH (09:17)
[2017-05-13] MEDS: LASIX PO SCH (09:18)
[2017-05-13] MEDS ORDERED: CARDURA PO SCH (10:00)
[2017-05-13] MEDS ORDERED: DIOVAN PO SCH (10:00)
[2017-05-13] MEDS ORDERED: HCTZ PO SCH (10:00)
[2017-05-13 13:39] VITALS: BP 155/61
--- NOTE | 2017-05-13 13:56 | Discharge Summary ---
Providers - Providers Date of Admission: 05/12/17 15:52 Date of discharge: 05/13/17 Attending physician: ORALIA WILLARD MD Primary care physician: [employer] Hospitalization Reason for admission: chest pain Condition: Stable Hospital course: Kristin is a 67-year-old woman with a past medical history of end-stage renal disease, atrial fibrillation, diabetes, uncontrolled hypertension, asthma, she presented with noncompliance with low sodium diet, and having lost her medications and not taking any of her blood pressure medications and diuretics for a few days. She presented with fluid overload and was admitted to have urgent dialysis. Patient symptoms improved and Blood pressure medications were adjusted with Cadura started and coreg discontinued, Patients BP improvement and she is currently stable in no acute distress and can be discharged. cardiology did see that patient and no indication for stress test at this time Chest pain likely costochondritis Acute exacerbation of CHF likely diastolic due to uncontrolled hypertension Atrial fibrillation/chronic Coagulopathy Hypertensive urgency Diabetes type 2, not insulin-dependent Asthma Disposition: TO HOME OR SELFCARE Time spent for discharge: 35 mins Core Measure Documentation - Palliative Care Palliative Care/ Comfort Measures: Not Applicable - Core Measures Any of the following diagnoses?: none - VTE Discharge Requirements Deep Vein Thrombosis/Pulmonary Embolism Present on Admission: No Exam - Physical Exam Narrative exam: VITAL SIGNS: Reviewed. GENERAL: The patient appeared well nourished and normally developed. Vital signs as documented. HEAD: No signs of head trauma. EYES: Pupils are equal. Extraocular motions intact. EARS: Hearing grossly intact. MOUTH: Oropharynx is normal. NECK: No adenopathy, no JVD. CHEST: Chest with clear breath sounds bilaterally. No wheezes, rales, or rhonchi. CARDIAC: Irregularly irregular rate and rhythm. S1 and S2, without murmurs, gallops, or rubs. VASCULAR: No Edema. Peripheral pulses normal and equal in all extremities. ABDOMEN: Soft, without detectable tenderness. No sign of distention. No rebound or guarding, and no masses palpated. Bowel Sounds normal. MUSCULOSKELETAL: Good range of motion of all major joints. Extremities without clubbing, cyanosis or edema. NEUROLOGIC EXAM: Alert and oriented x 3. No focal sensory or strength deficits. Speech normal. Follows commands. PSYCHIATRIC: Mood normal. SKIN: No rash or lesions. - Constitutional Vitals: Temp Pulse Resp BP Pulse Ox 98.1 F 61 20 155/61 97 05/13/17 10:00 05/13/17 13:39 05/13/17 10:00 05/13/17 13:39 05/13/17 08:30 Plan Activity: advance as tolerated, fall precautions Diet: low fat, diabetic, renal Special Instructions: record daily weights, record daily BP diary, record blood sugar diary Additional Instructions: follow with choral teacher and also please establish [employer] for dialysis on relocation Follow up with: PRIMARY CARE, [Primary Care Provider] - 3-5 Days Forms: Warfarin Discharge Instruction Prescriptions: Simvastatin [Zocor TAB] 10 mg PO QHS #30 tablet Albuterol Sulfate [Albuterol 0.63% NEBS] 0.63 mg IH TID PRN #30 vial.neb PRN Reason: Wheezing clonazePAM [KlonoPIN] 0.5 mg PO HS #30 tablet cloNIDine [Catapres] 0.2 mg PO TID #90 tablet Doxazosin [Cardura] 2 mg PO BID #60 tablet Ferric Citrate (Nf) [Auryxia (Nf)] 210 mg PO TID #90 tablet Furosemide [Lasix TAB] 40 mg PO QDAY #30 tablet Gabapentin [Neurontin] 100 mg PO Q8HR PRN #90 capsule PRN Reason: Pain Glimepiride [Amaryl] 2 mg PO BID #60 tablet NIFEdipine XL [Procardia Xl] 60 mg PO BID #60 tablet Valsartan/Hydrochlorothiazide [Valsartan-Hctz 160-12.5 mg Tab] 1 each PO BID # 60 tablet Warfarin [Coumadin] 2.5 mg PO 4XW #30 tablet Warfarin [Coumadin] 5 mg PO 3XW #30 tablet
== END 2017-05-13 15:00 | disposition home or self-care (01) | DRG 291 ==
LOC: ED 05:30 → CC2 08:26 → OBSVTOIN 05-12 15:52
PROVIDERS: ADMIT Internal Medicine; ATTEND Internal Medicine
PROC: 5A1D60Z (ICD-10-PCS; principal; 2017-05-11)
DX: I13.2 Hypertensive heart and chronic kidney disease with heart failure and with stage 5 chronic kidney disease, or end stage renal disease (principal); I50.33 Acute on chronic diastolic (congestive) heart failure; J96.01 Acute respiratory failure with hypoxia; N18.6 End stage renal disease; I16.1 Hypertensive emergency; D68.9 Coagulation defect, unspecified; J81.1 Chronic pulmonary edema; M94.0 Chondrocostal junction syndrome [Tietze]; E87.70 Fluid overload, unspecified; I48.2 Chronic atrial fibrillation; E11.22 Type 2 diabetes mellitus with diabetic chronic kidney disease; K21.9 Gastro-esophageal reflux disease without esophagitis; M19.90 Unspecified osteoarthritis, unspecified site; D63.8 Anemia in other chronic diseases classified elsewhere; Z99.2 Dependence on renal dialysis; Z91.15 Patient's noncompliance with renal dialysis; Z88.5 Allergy status to narcotic agent; Z88.0 Allergy status to penicillin; Z85.528 Personal history of other malignant neoplasm of kidney; Z90.710 Acquired absence of both cervix and uterus; Z90.5 Acquired absence of kidney; Z82.49 Family history of ischemic heart disease and other diseases of the circulatory system
CPT/HCPCS: 36415; 71010; 80048; 82962; 83880; 84484; 85025; 85610; 93005; 93010; 93306; 94640; 94760; G0378; J0360; J7030